=== PATIENT | female | born 1975 | race Caucasian/White ===

== ENCOUNTER 2017-03-06 15:24 | Emergency (ER) | payer SELFPAY ==
[~2017-03-06] VITALS: Ht 165.1 cm; Wt 72.6 kg
[2017-03-06] MEDS ORDERED: ORPHENADRINE 60 MG/2 ML (NORFLEX) AMP IV STA (15:40)
[2017-03-06] MEDS ORDERED: fentaNYL INJECTION 100 MCG/2 ML AMP IVP STA (15:40)
--- NOTE | 2017-03-06 15:47 | ED Fall/Injury ---
General Chief Complaint: Trauma-Non Activation Stated Complaint: FALL Nursing Triage Note: ARRIVED VIA EMS FROM HOME. PT FELL OFF [facility] STA[facility] SAT MORNING. COMPLAINS OF PAIN RIGHT COLLAR BONE, RIGHT ARM, RIGHT RIBS, AND TAIL BONE. PT DENIES LOC AFTER FALL. PT TOOK IBUPROFEN 800MG THIS AM BEFORE WORK. Source: patient Exam Limitations: no limitations History of Present Illness Time seen by provider: 15:38 Initial Comments 41-year-old female patient presents to the emergency department via EMS with complaints of slipping and falling down the porch stairs Monday. Reports worse pain today. Denies loss of consciousness, confusion, neck pain. Does complain of right forearm pain, right rib pain, right hip pain, buttock pain, and low back pain. Location Injury Occurred: home Occurred: other (monday) Injuries/Pain Location: upper extremity, chest, back, pelvis, lower extremity Context: slipped Loss of Consciousness: no loss of consciousness Modifying Factors: Improves With Immobilization, Worse With Movement Allergies and Home Medications Allergies Coded Allergies: Penicillins (Verified Adverse Reaction, Unknown, 03/06/17) DAD IS ALLERGIC AND SHE DOES NOT WANT IT. Home Medications Cyclobenzaprine HCl 10 Mg Tablet, 10 MG PO Q8H PRN for SPASMS, #14 Ref 0 Prescribed by: LAN FLORES on 03/06/171748 Prednisone 20 Mg Tab, 40 MG PO DAILY, #10 Ref 0 Prescribed by: LAN FLORES on 03/06/171748 Tramadol HCl 50 Mg Tablet, 50 MG PO Q4H PRN for pain, #14 Ref 0 Prescribed by: LAN FLORES on 03/06/171748 Constitutional: no symptoms reported Eyes: No Symptoms Reported Ears, Nose, Mouth, Throat: no symptoms reported Respiratory: No cough, No short of breath Cardiovascular: No chest pain, No syncope Gastrointestinal: no symptoms reported Genitourinary: no symptoms reported Musculoskeletal: see HPI, back pain, joint pain, No neck pain Skin: no symptoms reported Psychiatric/Neurological: Denies Headache, Denies Numbness, Denies Paresthesia , Denies Tingling, Denies Weakness All Other Systems Reviewed Negative Unless Noted: Yes (Negative excepted noted.) Past Exlbwck-Iekbde-Odwalj Hx Patient Social History Alcohol Use: Occasionally Uses Recreational Drug Use: No Smoking Status: Current Everyday Smoker Recent Foreign Travel: No Contact w/Someone Who Travel: No Recent Infectious Disease Expo: No Recent Hopitalizations: No Surgeries HX Surgeries: Yes Surgeries: Tubal Ligation Respiratory Hx Respiratory Disorders: Yes Respiratory Disorders: Asthma Cardiovascular Hx Cardiac Disorders: No Neurological Hx Neurological Disorders: No Genitourinary Hx Genitourinary Disorders: No Gastrointestinal Hx Gastrointestinal Disorders: No Musculoskeletal Hx Musculoskeletal Disorders: No Reviewed Nursing Assessment Reviewed/Agree w Nursing PMH: Yes Family Medical History Significant Family History: No Pertinent Family Hx Physical Exam Vital Signs Vital Sign - Last 12Hours 03/06/17 15:25 Temp 98.0 Pulse 66 Resp 16 B/P (MAP) 136/66 Pulse Ox 96 O2 Delivery Room Air Capillary Refill : Less Than 3 Seconds General Appearance: WD/WN, no apparent distress HEENT: PERRL/EOMI, normal ENT inspection, TMs normal, pharynx normal Neck: non-tender, full range of motion, supple, normal inspection Cardiovascular: normal peripheral pulses, regular rate, rhythm, no murmur Respiratory: lungs clear, normal breath sounds, no respiratory distress, other (rt lateral ribs TTP w/o ecchymosis, swelling or deformity.) Peripheral Pulses: 2+ Dorsalis Pedis (R), 2+ Left Dors-Pedis (L), 2+ Radial Pulses (R), 2+ Radial Pulses (L) Gastrointestinal: normal bowel sounds, non tender, soft, no organomegaly, No distended Back: normal inspection, no CVA tenderness, decreased range of motion, muscle spasm, vertebral tenderness (lumbar) Extremities: normal range of motion, normal inspection, no pedal edema, normal capillary refill, pelvis stable, other (rt distal forearm ttp w/ faint ecchymosis with bony/soft tissue tenderness. rt lateral, posterior hip ttp w/o evidence of trauma. ) Neurologic/Psychiatric: product director II-XII nml as tested, no motor/sensory deficits, alert, normal mood/affect, oriented x 3 Skin: normal color, warm/dry, No ecchymosis Hammond Coma Score Best Eye Response: (4) Open Spontaneously Best Verbal Response: (5) Oriented Best Motor Response: (6) Obeys Commands Hammond Total: 15 Progress/Results/Core Measures Results/Orders My Orders Orders - LAN FLORES Ct Chest W (03/06/17 15:40) Ct Lumbar Spine Wo (03/06/17 15:40) Saline Lock/Iv-Start (03/06/17 15:40) Fentanyl Injection (Sublimaze Injection (03/06/17 15:40) Orphenadrine Injection (Norflex Injectio (03/06/17 15:40) Forearm, Right, 2 Views (03/06/17 15:40) Pelvis (03/06/17 15:40) Hip, Right, 2 Views (03/06/17 15:40) Iohexol Injection (Omnipaque 350 Mg/Ml 1 (03/06/17 16:00) Sodium Chloride Flush (Catheter Flush Sy (03/06/17 16:00) Ns (Ivpb) (Sodium Chloride 0.9% Ivpb Bag (03/06/17 16:00) Ketorolac Injection (Toradol Injection) (03/06/17 17:44) Hydrocodone/Apap 10/325 Tablet (Lortab 1 (03/06/17 17:44) Medications Given in ED Current Medications Medications Dose Ordered Sig/Joselin Route Start Time Stop Time Status Last Admin Dose Admin Iohexol 75 ml ONCE ONCE IV 03/06/17 16:00 03/06/17 16:21 DC 03/06/17 16:36 75 ML Sodium Chloride 10 ml NEEDED PRN IV 03/06/17 16:00 03/06/17 18:17 DC 03/06/17 16:36 10 ML Sodium Chloride 100 ml ONCE ONCE IV 03/06/17 16:00 03/06/17 16:21 DC 03/06/17 16:36 80 ML Vital Signs/I&O Vital Sign - Last 12Hours 03/06/17 03/06/17 15:25 18:16 Temp 98.0 Pulse 66 61 Resp 16 18 B/P (MAP) 136/66 Pulse Ox 96 98 O2 Delivery Room Air Blood Pressure Mean: 89 Diagnostic Imaging Diagonstic Imaging: CT Plain Films/CT/US/NM/MRI: other (lumbar spine) Comments FINDINGS: The alignment of the lumbar spine is satisfactory. There is no pars defect or fracture. The vertebral body heights are preserved. Disc heights are also preserved. There are minimal anterior osteophytes at multiple levels. No significant posterior osteophyte is seen. No fracture seen. The paraspinal soft tissues appear unremarkable. IMPRESSION: No fracture seen. Dictated by: Dictated on workstation # [id number] Reviewed: Reviewed by Me (radiology report reviewed by me) Diagonstic Imaging: CT Plain Films/CT/US/NM/MRI: chest Comments FINDINGS: The lungs demonstrate minimal dependent atelectasis bilaterally with no significant consolidation or contusion. No suspicious nodule or lung mass is seen. The heart size is normal. No pericardial or pleural effusion. No mediastinal hematoma. Thymic remnant is seen in the anterior mediastinum. No lymphadenopathy in the mediastinum, esteban or in the axilla. The thoracic aorta caliber and contour and enhancement is normal. No axillary lymphadenopathy. Sections in the upper abdomen demonstrate cholecystectomy clips. The osseous structures appear grossly unremarkable. IMPRESSION: Minimal dependent atelectasis is seen in the lungs. No significant abnormality otherwise. Dictated by: Dictated on workstation # [id number] Reviewed: Reviewed by Me (radiology report reviewed by me) Diagonstic Imaging: Xray Plain Films/CT/US/NM/MRI: forearm Comments FINDINGS: No fracture, dislocation, or radiopaque foreign body. The proximal and distal joints appear grossly unremarkable. IMPRESSION: No fracture is seen. Dictated by: Dictated on workstation # [id number] Reviewed: Reviewed by Me (radiology report reviewed by me) Diagonstic Imaging: Xray Plain Films/CT/US/NM/MRI: hip Comments FINDINGS: No fracture, dislocation, or radiopaque foreign body. The joint lining is normal. Faint calcification in the right side of the pelvis is likely a phlebolith. The right SI joint appears unremarkable. IMPRESSION: Unremarkable exam. Dictated by: Dictated on workstation # [id number] Reviewed: Reviewed by Me (radiology report reviewed by me) Diagonstic Imaging: Xray Plain Films/CT/US/NM/MRI: pelvis Comments FINDINGS: No fracture or dislocation is seen. The hip and SI joints appear unremarkable. No radiopaque foreign body. IMPRESSION: Unremarkable exam. Dictated by: Dictated on workstation # [id number] Reviewed: Reviewed by Me (radiology report reviewed by me) Departure Communication Progress Notes diagnostic findings discussed with the patient. plan for dsch to home. patient ambulated from the ED without difficulty. Impression Impression: Primary Impression: Low back strain Qualified Codes: S39.012A - Strain of muscle, fascia and tendon of lower back , initial encounter Additional Impression: Contusion, multiple sites Disposition: HOME, SELF-CARE Condition: Improved Departure-Patient Inst. Decision time for Depature: 17:47 Add. Discharge Instructions: All discharge instructions reviewed with patient and/or family. Voiced understanding. Medications as instructed. Tylenol Extra Strength over-the- counter as directed for pain. Ibuprofen 800 mg by mouth every 8 hours as needed for pain. Ice pack or a heating pad for 20 minute intervals as needed for pain. No lifting, pushing, pulling, twisting, bending, climbing 7 days. Follow-up with your family practitioner of choice for recheck if no improvement in symptoms in 7-10 days. Return to the emergency department for worsened pain , bowel incontinence, bladder incontinence, numbness, weakness, or any other concerns. Scripts Prednisone (Prednisone) 20 Mg Tab 40 MG PO DAILY, #10 TAB 0 Refills Prov: LAN FLORES 03/06/17 Cyclobenzaprine HCl (Cyclobenzaprine HCl) 10 Mg Tablet 10 MG PO Q8H Y for SPASMS, #14 TAB 0 Refills Prov: LAN FLORES 03/06/17 Tramadol HCl (Tramadol HCl) 50 Mg Tablet 50 MG PO Q4H Y for pain, #14 TAB 0 Refills Prov: LAN FLORES 03/06/17 Work/School Note: Local Medical Staff Listing, Work Release Form Date Seen in the Emergency Department: Mar 06, 2017 Return to Work: Mar 08, 2017 Other Restrictions Listed Below: No lifting, pushing, pulling, twisting, bending, climbing 7 days. LAN FLORES Mar 06, 2017 15:47
[2017-03-06] MEDS ORDERED: CATHETER FLUSH 10 ML SYR IV PRN (16:00)
[2017-03-06] MEDS ORDERED: IOHEXOL 350 MG/ML 100 ML (OMNIPAQUE 350) VIAL IV ONE (16:00)
[2017-03-06] MEDS ORDERED: NS 100 ML (IVPB) BAG IV ONE (16:00)
--- NOTE | 2017-03-06 16:49 | Diagnostic Imaging Report ---
EXAMINATION: Two views of the right hip. INDICATION: Injury. FINDINGS: No fracture, dislocation, or radiopaque foreign body. The joint lining is normal. Faint calcification in the right side of the pelvis is likely a phlebolith. The right SI joint appears unremarkable. IMPRESSION: Unremarkable exam. Dictated by: Dictated on workstation # [id number]
--- NOTE | 2017-03-06 16:49 | Diagnostic Imaging Report ---
AP view of the pelvis. INDICATION: Injury. FINDINGS: No fracture or dislocation is seen. The hip and SI joints appear unremarkable. No radiopaque foreign body. IMPRESSION: Unremarkable exam. Dictated by: Dictated on workstation # [id number]
--- NOTE | 2017-03-06 16:49 | Diagnostic Imaging Report ---
EXAMINATION: Two views of the right forearm. INDICATION: Fall. FINDINGS: No fracture, dislocation, or radiopaque foreign body. The proximal and distal joints appear grossly unremarkable. IMPRESSION: No fracture is seen. Dictated by: Dictated on workstation # [id number]
--- NOTE | 2017-03-06 16:57 | Diagnostic Imaging Report ---
PROCEDURE: CT chest with contrast only. TECHNIQUE: Multiple contiguous axial images were obtained through the chest after administration of intravenous contrast. INDICATION: Fall. Right-sided rib and chest pain. FINDINGS: The lungs demonstrate minimal dependent atelectasis bilaterally with no significant consolidation or contusion. No suspicious nodule or lung mass is seen. The heart size is normal. No pericardial or pleural effusion. No mediastinal hematoma. Thymic remnant is seen in the anterior mediastinum. No lymphadenopathy in the mediastinum, esteban or in the axilla. The thoracic aorta caliber and contour and enhancement is normal. No axillary lymphadenopathy. Sections in the upper abdomen demonstrate cholecystectomy clips. The osseous structures appear grossly unremarkable. IMPRESSION: Minimal dependent atelectasis is seen in the lungs. No significant abnormality otherwise. Dictated by: Dictated on workstation # [id number]
--- NOTE | 2017-03-06 17:01 | Diagnostic Imaging Report ---
PROCEDURE: CT lumbar spine without contrast. TECHNIQUE: Multiple contiguous axial images were obtained through the lumbar spine without the use of intravenous contrast. Sagittal and coronal reformations were then performed. INDICATION: Fall. Back pain. FINDINGS: The alignment of the lumbar spine is satisfactory. There is no pars defect or fracture. The vertebral body heights are preserved. Disc heights are also preserved. There are minimal anterior osteophytes at multiple levels. No significant posterior osteophyte is seen. No fracture seen. The paraspinal soft tissues appear unremarkable. IMPRESSION: No fracture seen. Dictated by: Dictated on workstation # [id number]
[2017-03-06] MEDS ORDERED: KETOROLAC 30 MG/ML VIAL IVP STA (17:44)
[2017-03-06] MEDS ORDERED: HYDROcodone/APAP 10 MG/325 MG (LORTAB) TAB PO STA (17:44)
[2017-03-06] MEDS ORDERED: TRAM50TA2 PO (17:49)
[2017-03-06] MEDS ORDERED: CYCL10TA9 PO (17:49)
[2017-03-06] MEDS ORDERED: PRD20T PO (17:49)
[2017-03-06 18:16] VITALS: BP 117/60
== END 2017-03-06 18:16 | disposition home or self-care (01) ==
LOC: ER 15:26
DX: S39.012A Strain of muscle, fascia and tendon of lower back, initial encounter (principal); J45.909 Unspecified asthma, uncomplicated; F17.200 Nicotine dependence, unspecified, uncomplicated; W10.9XXA Fall (on) (from) unspecified stairs and steps, initial encounter; Y92.008 Other place in unspecified non-institutional (private) residence as the place of occurrence of the external cause
CPT/HCPCS: 71260; 72131; 72170; 73090; 73502

== ENCOUNTER 2019-12-18 22:51 | Emergency (ER) | payer SELFPAY ==
[~2019-12-18] VITALS: Ht 167.6 cm; Wt 84.3 kg
[~2019-12-18 22:51] MED LIST: CYCL10TA9 PO; PRD20T PO; TRM50T PO
--- NOTE | 2019-12-18 23:13 | ED Respiratory ---
General Chief Complaint: Respiratory Problems Stated Complaint: SOB Nursing Triage Note: patient states shortness of breath x1 week. states cough non productive. patient states highest temp 99 Source: patient Exam Limitations: no limitations History of Present Illness Date Seen by Provider: Dec 18, 2019 Time Seen by Provider: 22:47 Initial Comments Patient presents to the ER by private conveyance with significant other and chief complaint of one week of cough and shortness of breath or fever. She was diagnosed approximately one week ago at the [facility] with a pneumonia. She did not receive a chest x-ray. She was put on a single dose of antibiotics which she has a left take. She does not have the name of it. He was also given a course of steroids which she completed. She felt like her coughing and getting worse today so she went back to the clinic and they said her wheezing sounded much better that they gave her a shot of antibiotics in her bottom and told her if her breathing got worse to come to the ER tonight. Feels like her breathing was worse today although the reasons much better. She's had a nonproductive cough entire time. Tmax today of 99.6. She has had negative strep and flu swab twice as well as she received swab COVID-19 today at the clinic. She denies a history of asthma, COPD but she does endorse smoking a pack of cigarettes. Significant medical history. She's had her gallbladder is recommended. Patient states that she had gestational diabetes and for about a year or 2 afterwards was on insulin but with diet control she has not been diabetic since then. She does not follow routinely with a primary care doctor now. Allergies and Home Medications Allergies Coded Allergies: Penicillins (Verified Adverse Reaction, Unknown, 03/06/17) DAD IS ALLERGIC AND SHE DOES NOT WANT IT. Home Medications Benzonatate 100 Mg Capsule, 100 MG PO Q6H PRN for COUGH Prescribed by: REINALDO ESPINOSA on 12/18/19 [id number] Cyclobenzaprine HCl 10 Mg Tablet, 10 MG PO Q8H PRN for SPASMS Prescribed by: LAN FLORES on 03/06/17 174 Prednisone 20 Mg Tab, 40 MG PO DAILY Prescribed by: LAN FLORES on 03/06/17 174 Tramadol HCl 50 Mg Tablet, 50 MG PO Q4H PRN for pain Prescribed by: LAN FLORES on 03/06/171748 Patient Home Medication List Home Medication List Reviewed: Yes Review of Systems Review of Systems Constitutional: No chills, No fever; malaise EENTM: No ear discharge, No ear pain Respiratory: cough; No phlegm; short of breath Cardiovascular: No chest pain, No edema, No Hx of Intervention, No palpitations Gastrointestinal: No abdominal pain, No nausea, No vomiting Genitourinary: No discharge, No dysuria Musculoskeletal: No back pain, No joint pain All Other Systems Reviewed Negative Unless Noted: Yes Past Sfdhdze-Ulfwcw-Tblttz Hx Patient Social History Alcohol Use: Denies Use Recreational Drug Use: No Smoking Status: Current Everyday Smoker (1 PPD) Recent Foreign Travel: No Contact w/Someone Who Travel: No Recent Infectious Disease Expo: No Recent Hopitalizations: No Physical Abuse: No Sexual Abuse: No Mistreated: No Past Medical History Surgeries: Yes Tubal Ligation Respiratory: Yes Asthma Cardiac: No Neurological: No Genitourinary: No Gastrointestinal: No Musculoskeletal: No Endocrine: No HEENT: No Cancer: No Psychosocial: No Integumentary: No Family Medical History No Pertinent Family Hx Physical Exam Vital Signs - First Documented 12/18/19 22:59 Temp 37.2 Pulse 80 Resp 18 B/P (MAP) 145/86 (105) Pulse Ox 97 O2 Delivery Room Air Capillary Refill : Less Than 3 Seconds Height: 5'5.00" Weight: 160lbs. oz. [id number]; 30.00 BMI Method:Estimated General Appearance: WD/WN, no apparent distress Eyes: Bilateral Eye Normal Inspection, Bilateral Eye PERRL, Bilateral Eye EOMI HEENT: PERRL/EOMI, pharynx normal Neck: non-tender, full range of motion, normal inspection Respiratory: chest non-tender, lungs clear, normal breath sounds, no respiratory distress, no accessory muscle use Cardiovascular: normal peripheral pulses, regular rate, rhythm Gastrointestinal: normal bowel sounds, non tender, soft Neurologic/Psychiatric: alert, oriented x 3 Skin: normal color, warm/dry Progress/Results/Core Measures Suspected Sepsis Recent Fever Within 48 Hours: No Infection Criteria Present: None New/Unexplained Altered Menta: No Sepsis Screen: No Definite Risk SIRS Temperature: Pulse: 80 Respiratory Rate: 18 Laboratory Tests 12/18/19 23:15: White Blood Count 14.3H Blood Pressure 145 /86 Mean: 105 Laboratory Tests 12/18/19 23:15: Creatinine 1.20, Platelet Count 342, Total Bilirubin 0.1 Results/Orders Lab Results Laboratory Tests Test 12/18/19 23:08 12/18/19 23:15 Range/Units Blood Gas Puncture Site R RAD Blood Gas Patient Temperature 37.1 Arterial Blood pH 7.49 H 7.37-7.43 Arterial Blood Partial Pressure CO2 29 L 35-45 MMHG Arterial Blood Partial Pressure O2 92 79-93 MMHG Arterial Blood HCO3 22 L 23-27 MMOL/L Arterial Blood Total CO2 22.8 21.0-31.0 MMOL/L Arterial Blood Oxygen Saturation 98 94-100 % Arterial Blood Base Excess -1.1 -2.5-2.5 MMOL/L Morgan Test YES-POS Blood Gas Ventilator Setting NO Blood Gas Inspired Oxygen RA White Blood Count 14.3 H 4.3-11.0 10^3/uL Red Blood Count 5.66 4.35-5.85 10^6/uL Hemoglobin 15.8 11.5-16.0 G/DL Hematocrit 46 35-52 % Mean Corpuscular Volume 81 80-99 FL Mean Corpuscular Hemoglobin 28 25-34 PG Mean Corpuscular Hemoglobin Concent 35 32-36 G/DL Red Cell Distribution Width 14.7 H 10.0-14.5 % Platelet Count 342 130-400 10^3/uL Mean Platelet Volume 10.1 7.4-10.4 FL Neutrophils (%) (Auto) 88 H 42-75 % Lymphocytes (%) (Auto) 10 L 12-44 % Monocytes (%) (Auto) 2 0-12 % Eosinophils (%) (Auto) 0 0-10 % Basophils (%) (Auto) 0 0-10 % Neutrophils # (Auto) 12.6 H 1.8-7.8 X 10^3 Lymphocytes # (Auto) 1.5 1.0-4.0 X 10^3 Monocytes # (Auto) 0.2 0.0-1.0 X 10^3 Eosinophils # (Auto) 0.0 0.0-0.3 10^3/uL Basophils # (Auto) 0.0 0.0-0.1 10^3/uL Neutrophils % (Manual) 90 % Lymphocytes % (Manual) 8 % Monocytes % (Manual) 1 % Metamyelocytes % 1 % Blood Morphology Comment NORMAL Sodium Level 134 L 135-145 MMOL/L Potassium Level 4.3 3.6-5.0 MMOL/L Chloride Level 101 98-107 MMOL/L Carbon Dioxide Level 16 L 21-32 MMOL/L Anion Gap 17 H 5-14 MMOL/L Blood Urea Nitrogen 19 H 7-18 MG/DL Creatinine 1.20 0.60-1.30 MG/DL Estimat Glomerular Filtration Rate 49 BUN/Creatinine Ratio 16 Glucose Level 438 *H 70-105 MG/DL Calcium Level 9.5 8.5-10.1 MG/DL Corrected Calcium 8.5-10.1 MG/DL Total Bilirubin 0.1 0.1-1.0 MG/DL Aspartate Amino Transf (AST/SGOT) 14 5-34 U/L Alanine Aminotransferase (ALT/SGPT) 22 0-55 U/L Alkaline Phosphatase 57 40-136 U/L C-Reactive Protein High Sensitivity 0.12 0.00-0.50 MG/DL Total Protein 7.9 6.4-8.2 GM/DL Albumin 4.6 H 3.2-4.5 GM/DL My Orders Orders - REINALDO ESPINOSA Cbc With Automated Diff (12/18/19 23:05) Comprehensive Metabolic Panel (12/18/19 23:05) Hs C Reactive Protein (12/18/19 23:05) Arterial Blood Gas (12/18/19 23:05) Chest 1 View, Ap/Pa Only (12/18/19 23:05) Albuterol Pre-Mix Nebs (Rt) (Proventil (12/18/19 23:16) Albuterol Pre-Mix Nebs (Rt) (Proventil (12/18/19 23:30) Svn Small Volume Nebulizer (12/18/19 23:20) Manual Differential (12/18/19 23:15) Rx-Albuterol Inhaler (Rx-Proair) (12/18/19 23:31) Insulin Determir (Per Unit) (Levemir (Pe (12/19/19 00:00) Medications Given in ED Current Medications Medications Dose Ordered Sig/Joselin Route Start Time Stop Time Status Last Admin Dose Admin Albuterol Sulfate 2.5 mg ONCE ONCE INH 12/18/19 23:30 12/18/19 23:32 DC 12/18/19 23:27 2.5 MG Insulin Detemir 10 unit ONCE ONCE SQ 12/19/19 00:00 12/19/19 00:01 DC 12/19/19 00:03 10 UNIT Vital Signs/I&O 12/18/19 12/19/19 22:59 00:17 Temp 37.2 36.7 Pulse 80 97 Resp 18 18 B/P (MAP) 145/86 (105) 141/88 Pulse Ox 97 93 O2 Delivery Room Air Room Air Capillary Refill : Less Than 3 Seconds Blood Pressure Mean: 105 Progress Note #1: Time: 23:14 Progress Note The patient has normal vital signs and no objective findings shortness of air. Based on her subjective shortness of air, smoking history and being treated outpatient for pneumonia we will get a chest x-ray to document whether she has significant pneumonia that might benefit from inpatient treatment. At this point she does not meet any inpatient criteria. She may benefit from from her inhaler and spacer however. He can also provide her some Tessalon Perles. Progress Note #2: Time: 23:51 Progress Note Patient's blood sugar is elevated however she's been on steroids. She denies a h istory of diabetes. We'll give her a single dose of long-acting insulin. We will instruct her to follow-up either later this week or early next week with her primary care doctor to discuss how to deal with her elevated blood sugar. Patient's oxygen did go down to about 90% on room air when she would fall asleep. Suspect she may have a little obstructive sleep apnea and addition to a background of diabetes. We have discussed these inserted with her and encouraged her strongly to follow-up with a primary care doctor which she says she will do. Diagnostic Imaging Diagonstic Imaging: Xray Plain Films/CT/US/NM/MRI: chest Comments No acute cardiopulmonary process on one view portable chest x-ray. Reviewed: Reviewed by Me Departure Impression Primary Impression: Bronchitis Additional Impression: Hyperglycemia Disposition: 01 HOME, SELF-CARE Condition: Stable Departure-Patient Inst. Decision time for Depature: 23:52 Referrals: [facility] [place] Primary Care Physician Patient Instructions: Acute Bronchitis, Adult (DC), Hyperglycemia, Adult (DC) Add. Discharge Instructions: Please finish the antibiotics as instructed. Use the albuterol inhaler 2 puffs every 4 hours as needed for coughing, wheezing or shortness of breath. Tessalon Perles 1 capsule every 6 hours as needed for coughing. Drink plenty of fluids. For sleep you may use Tylenol PM, doxylamine, Benadryl/diphenhydramine, melatonin. Plan to follow up next week with your primary care doctor to discuss your elevated blood sugar. Return to the ER if you're still having shortness of breath despite these medications. All discharge instructions reviewed with patient and/or family. Voiced understanding. Scripts Benzonatate (Tessalon Perle) 100 Mg Capsule 100 MG PO Q6H PRN for COUGH, #30 CAP 0 Refills Prov: REINALDO ESPINOSA 12/18/19 Work/School Note: Work Release Form Date Seen in the Emergency Department: A pr 2019 Return to Work: Dec 23, 2019 Restrictions: Return-No Fever (24hrs) REINALDO ESPINOSA Dec 18, 2019 23:13
[2019-12-18] MEDS ORDERED: RT-ALBUTEROL SULF 2.5 MG/3 ML PRE-MIX VIAL ONE (23:16)
[2019-12-18 23:25] LABS: ABG BASE EXCESS -1.1 MMOL/L (-2.5-2.5); ABG OXYGEN SATURATION 98 % (94-100); ABG PCO2 29 MMHG (35-45); ABG PH 7.49 (7.37-7.43); ABG PO2 92 MMHG (79-93); ABG TCO2 22.8 MMOL/L (21.0-31.0); ALLENS TEST YES-POS; INSPIRED O2 RA; PATIENT TEMP 37.1; VENTILATOR NO
[2019-12-18 23:28] LABS: BASOPHILS % (AUTO) 0 % (0-10); EOSINOPHILS % (AUTO) 0 % (0-10); HEMATOCRIT 46 % (35-52); HEMOGLOBIN 15.8 G/DL (11.5-16.0); LYMPHOCYTES # (AUTO) 1.5 X 10^3 (1.0-4.0); LYMPHOCYTES % (AUTO) 10 % (12-44); MEAN CORPUSCULAR HEMOGLOBIN 28 PG (25-34); MEAN CORPUSCULAR HGB CONC 35 G/DL (32-36); MEAN CORPUSCULAR VOLUME 81 FL (80-99); MEAN PLATELET VOLUME 10.1 FL (7.4-10.4); MONOCYTES # (AUTO) 0.2 X 10^3 (0.0-1.0); MONOCYTES % (AUTO) 2 % (0-12); NEUTROPHILS # (AUTO) 12.6 X 10^3 (1.8-7.8); NEUTROPHILS % (AUTO) 88 % (42-75); PLATELET COUNT 342 10^3/uL (130-400); RED CELL DISTRIBUTION WIDTH 14.7 % (10.0-14.5); WHITE BLOOD COUNT 14.3 10^3/uL (4.3-11.0)
[2019-12-18] MEDS ORDERED: RT-ALBUTEROL SULF 2.5 MG/3 ML PRE-MIX VIAL INH ONE (23:30)
[2019-12-18] MEDS ORDERED: RX-ALBUTEROL INHALER (PROAIR) 8.5 GM IH STA (23:31)
[2019-12-18 23:44] LABS: ALANINE AMINOTRANSFERASE 22 U/L (0-55); ALBUMIN 4.6 GM/DL (3.2-4.5); ALKALINE PHOSPHATASE 57 U/L (40-136); BILIRUBIN,TOTAL 0.1 MG/DL (0.1-1.0); BUN/CREATININE RATIO 16; CALCIUM 9.5 MG/DL (8.5-10.1); CARBON DIOXIDE 16 MMOL/L (21-32); CHLORIDE 101 MMOL/L (98-107); GFR ESTIMATED 49; POTASSIUM 4.3 MMOL/L (3.6-5.0); SODIUM 134 MMOL/L (135-145); TOTAL PROTEIN 7.9 GM/DL (6.4-8.2)
[2019-12-18 23:47] LABS: GLUCOSE 438 MG/DL (70-105)
[2019-12-18 23:52] LABS: LYMPHOCYTES % (MANUAL) 8 %; NEUTROPHILS % (MANUAL) 90 %
[2019-12-18 23:53] LABS: METAMYELOCYTES % 1 %; MONOCYTES % (MANUAL) 1 %; RBC MORPH NORMAL
[2019-12-18] MEDS ORDERED: BENZ-13 PO (23:54)
--- NOTE | 2019-12-18 23:59 | NUR ---
patient sitting up in bed, oxygen saturation 90 percent. patient stated her oxygen dropped down at the clinic also. Dr Hayes notified.
[2019-12-19 00:17] VITALS: BP 141/88
--- NOTE | 2019-12-19 06:56 | Diagnostic Imaging Report ---
CHEST 1 VIEW, AP/PA ONLY Indication: Shortness of air Comparison: None available. Findings: No focal airspace disease in the visualized lungs. Please note that the posterior lower lobes are poorly evaluated by portable radiography. No pleural effusion or pneumothorax. Normal cardiomediastinal silhouette. Impression: 1. No acute cardiopulmonary process by portable radiography. Dictated by: Dictated on workstation # [id number]
== END 2019-12-19 00:19 | disposition home or self-care (01) ==
LOC: EDUNIT# 22:51 → ER 22:53
DX: J40 Bronchitis, not specified as acute or chronic (principal); R73.9 Hyperglycemia, unspecified; F17.210 Nicotine dependence, cigarettes, uncomplicated
CPT/HCPCS: 36415; 71045; 80053; 82805; 85007; 85027; 86141; 94640

== ENCOUNTER 2020-02-26 09:43 | Emergency (ER) | payer SELFPAY ==
[~2020-02-26] VITALS: Ht 162.5 cm; Wt 83.0 kg
[~2020-02-26 09:43] MED LIST changes: +BENZ-13 PO
[2020-02-26 10:53] LABS: BASOPHILS % (AUTO) 0 % (0-10); EOSINOPHILS # (AUTO) 0.1 10^3/uL (0.0-0.3); EOSINOPHILS % (AUTO) 0 % (0-10); HEMATOCRIT 46 % (35-52); HEMOGLOBIN 15.4 G/DL (11.5-16.0); LYMPHOCYTES # (AUTO) 2.4 X 10^3 (1.0-4.0); LYMPHOCYTES % (AUTO) 15 % (12-44); MEAN CORPUSCULAR HEMOGLOBIN 27 PG (25-34); MEAN CORPUSCULAR HGB CONC 34 G/DL (32-36); MEAN CORPUSCULAR VOLUME 82 FL (80-99); MEAN PLATELET VOLUME 10.2 FL (7.4-10.4); MONOCYTES # (AUTO) 1.1 X 10^3 (0.0-1.0); MONOCYTES % (AUTO) 7 % (0-12); NEUTROPHILS # (AUTO) 12.4 X 10^3 (1.8-7.8); NEUTROPHILS % (AUTO) 78 % (42-75); PLATELET COUNT 321 10^3/uL (130-400); RED CELL DISTRIBUTION WIDTH 14.9 % (10.0-14.5); WHITE BLOOD COUNT 15.9 10^3/uL (4.3-11.0)
[2020-02-26 10:54] LABS: ALBUMIN 4.6 GM/DL (3.2-4.5); CHLORIDE 106 MMOL/L (98-107)
[2020-02-26 10:55] LABS: BILIRUBIN,URINE NEGATIVE (NEGATIVE); CLARITY,URINE CLEAR; COLOR,URINE YELLOW; GLUCOSE, URINE (UA) 1+ (NEGATIVE); KETONES,URINE NEGATIVE (NEGATIVE); LEUKOCYTE ESTERASE ,URINE NEGATIVE (NEGATIVE); NITRITE,URINE NEGATIVE (NEGATIVE); PH,URINE 5.5 (5-9); PROTEIN,URINE NEGATIVE (NEGATIVE)
[2020-02-26 10:55] LABS: POTASSIUM 4.1 MMOL/L (3.6-5.0); SODIUM 138 MMOL/L (135-145)
--- NOTE | 2020-02-26 10:55 | ED Abdominal Pain ---
General Chief Complaint: Abdominal/GI Problems Stated Complaint: ABD PAIN Nursing Triage Note: AMB TO ROOM C/O R LOWER ABD PAIN THAT RADIATES ACROSS. NO UTI SYMPTOMS HAD NOT HAD BM FOR SEVERAL DAYS Sepsis Screen: No Definite Risk Source of Information: Patient Exam Limitations: No Limitations History of Present Illness Date Seen by Provider: Feb 26, 2020 Time Seen by Provider: 10:54 Initial Comments To ER with right lower quadrant abdominal pain for 5 days. No bowel movement for a couple of days. No fevers or chills but she has had nausea. Timing/Duration: 4-5 Days Severity/Quality: Moderate Location: RLQ Radiation: No Radiation Activities at Onset: None Allergies and Home Medications Allergies Coded Allergies: Penicillins (Verified Adverse Reaction, Unknown, 03/06/17) DAD IS ALLERGIC AND SHE DOES NOT WANT IT. Home Medications Benzonatate 100 Mg Capsule, 100 MG PO Q6H PRN for COUGH Prescribed by: REINALDO ESPINOSA on 12/18/19 2354 Cyclobenzaprine HCl 10 Mg Tablet, 10 MG PO Q8H PRN for SPASMS Prescribed by: LAN FLORES on 03/06/17 1749 Doxycycline Hyclate 100 Mg Tablet, 100 MG PO BID Prescribed by: KIMMY CANO on 02/26/20 1229 Hydrocodone/Acetaminophen 1 Each Tablet, 1 EACH PO Q4-6HR PRN for PAIN-MODERATE Prescribed by: KIMMY CANO on 02/26/20 1230 Prednisone 20 Mg Tab, 40 MG PO DAILY Prescribed by: LAN FLORES on 03/06/17 1749 Tramadol HCl 50 Mg Tablet, 50 MG PO Q4H PRN for pain Prescribed by: LAN FLORES on 03/06/17 1749 Patient Home Medication List Home Medication List Reviewed: Yes Review of Systems Review of Systems Constitutional: see HPI EENTM: No Symptoms Reported Respiratory: No Symptoms Reported Cardiovascular: See HPI Gastrointestinal: See HPI, Abdominal Pain Genitourinary: No Symptoms Reported Musculoskeletal: no symptoms reported Skin: no symptoms reported Psychiatric/Neurological: No Symptoms Reported Endocrine: No Symptoms Reported Hematologic/Lymphatic: No Symptoms Reported Past Tijyjdz-Fjekdx-Dgommc Hx Patient Social History Alcohol Use: Occasionally Uses Recreational Drug Use: No Smoking Status: Current Everyday Smoker Type Used: Cigarettes Recent Foreign Travel: No Contact w/Someone Who Travel: No Recent Infectious Disease Expo: No Recent Hopitalizations: No Past Medical History Surgeries: Yes Tubal Ligation Respiratory: Yes Asthma Cardiac: No Neurological: No Genitourinary: No Gastrointestinal: No Musculoskeletal: No Endocrine: No HEENT: No Cancer: No Psychosocial: No Integumentary: No Family Medical History No Pertinent Family Hx Physical Exam Vital Signs Vital Signs - First Documented 02/26/20 09:59 Temp 36.9 Pulse 82 Resp 18 B/P (MAP) 152/102 (119) Pulse Ox 97 O2 Delivery Room Air Capillary Refill : Less Than 3 Seconds Height/Weight/BMI Height: 5'5.00" Weight: 160lbs. oz. 72.991084sy; 31.00 BMI Method:Estimated General Appearance: WD/WN, no apparent distress HEENT: PERRL/EOMI, normal ENT inspection Respiratory: no respiratory distress, no accessory muscle use Gastrointestinal: normal bowel sounds, soft, tenderness Genital/Rectal: other (she did just start her period so there is some blood in the vaginal vault,reji rn at the bedside during vaginal exam. Mild cervical motion tenderness) Extremities: normal range of motion, non-tender Neurologic/Psychiatric: alert, normal mood/affect, oriented x 3 Skin: normal color, warm/dry Progress/Results/Core Measures Results/Orders Lab Results Laboratory Tests Test 02/26/20 10:14 02/26/20 10:49 02/26/20 13:12 Range/Units White Blood Count 15.9 H 4.3-11.0 10^3/uL Red Blood Count 5.62 4.35-5.85 10^6/uL Hemoglobin 15.4 11.5-16.0 G/DL Hematocrit 46 35-52 % Mean Corpuscular Volume 82 80-99 FL Mean Corpuscular Hemoglobin 27 25-34 PG Mean Corpuscular Hemoglobin Concent 34 32-36 G/DL Red Cell Distribution Width 14.9 H 10.0-14.5 % Platelet Count 321 130-400 10^3/uL Mean Platelet Volume 10.2 7.4-10.4 FL Neutrophils (%) (Auto) 78 H 42-75 % Lymphocytes (%) (Auto) 15 12-44 % Monocytes (%) (Auto) 7 0-12 % Eosinophils (%) (Auto) 0 0-10 % Basophils (%) (Auto) 0 0-10 % Neutrophils # (Auto) 12.4 H 1.8-7.8 X 10^3 Lymphocytes # (Auto) 2.4 1.0-4.0 X 10^3 Monocytes # (Auto) 1.1 H 0.0-1.0 X 10^3 Eosinophils # (Auto) 0.1 0.0-0.3 10^3/uL Basophils # (Auto) 0.0 0.0-0.1 10^3/uL Neutrophils % (Manual) 80 % Lymphocytes % (Manual) 12 % Monocytes % (Manual) 5 % Eosinophils % (Manual) 0 % Basophils % (Manual) 0 % Band Neutrophils 2 % Reactive Lymphocytes 1 % Blood Morphology Comment NORMAL Sodium Level 138 135-145 MMOL/L Potassium Level 4.1 3.6-5.0 MMOL/L Chloride Level 106 98-107 MMOL/L Carbon Dioxide Level 20 L 21-32 MMOL/L Anion Gap 12 5-14 MMOL/L Blood Urea Nitrogen 13 7-18 MG/DL Creatinine 0.96 0.60-1.30 MG/DL Estimat Glomerular Filtration Rate > 60 BUN/Creatinine Ratio 14 Glucose Level 230 H 70-105 MG/DL Calcium Level 9.5 8.5-10.1 MG/DL Corrected Calcium 8.5-10.1 MG/DL Total Bilirubin 0.6 0.1-1.0 MG/DL Aspartate Amino Transf (AST/SGOT) 13 5-34 U/L Alanine Aminotransferase (ALT/SGPT) 17 0-55 U/L Alkaline Phosphatase 58 40-136 U/L Total Protein 7.5 6.4-8.2 GM/DL Albumin 4.6 H 3.2-4.5 GM/DL Serum Test, Qualitative NEGATIVE NEGATIVE Urine Color YELLOW Urine Clarity CLEAR Urine pH 5.5 5-9 Urine Specific [place] 1.010 L 1.016-1.022 Urine Protein NEGATIVE NEGATIVE Urine Glucose (UA) 1+ H NEGATIVE Urine Ketones NEGATIVE NEGATIVE Urine Nitrite NEGATIVE NEGATIVE Urine Bilirubin NEGATIVE NEGATIVE Urine Urobilinogen 0.2 < = 1.0 MG/DL Urine Leukocyte Esterase NEGATIVE NEGATIVE Urine RBC (Auto) NEGATIVE NEGATIVE Urine RBC NONE /HPF Urine WBC NONE /HPF Urine Squamous Epithelial Cells 0-2 /HPF Urine Crystals NONE /LPF Urine Bacteria TRACE /HPF Urine Casts NONE /LPF Urine Mucus NEGATIVE /LPF Urine Culture Indicated NO Micro Results Microbiology 02/26/20 Genital Culture, Resulted Pending 02/26/20 Wet Prep - Final, Resulted My Orders Orders - KIMMY CANO APRN Cbc With Automated Diff (02/26/20 10:46) Comprehensive Metabolic Panel (02/26/20 10:46) Hcg,Qualitative Serum (02/26/20 10:46) Ed Iv/Invasive Line Start (02/26/20 10:46) Ua Culture If Indicated (02/26/20 10:46) Ct Abdomen/Pelvis W (02/26/20 10:52) Ketorolac Injection (Toradol Injection) (02/26/20 11:00) Fentanyl Injection (Sublimaze Injection (02/26/20 11:00) Manual Differential (02/26/20 10:14) Iohexol Injection (Omnipaque 350 Mg/Ml 1 (02/26/20 11:15) Received Contrast (Hold Metformin- Contr (02/26/20 11:15) Sodium Chloride Flush (Catheter Flush Sy (02/26/20 11:15) Ns (Ivpb) (Sodium Chloride 0.9% Ivpb Bag (02/26/20 11:15) Ondansetron Injection (Zofran Injectio (02/26/20 11:30) Ondansetron Injection (Zofran Injectio (02/26/20 11:20) Wet Prep (02/26/20 11:44) Neisseria Gonorrhea Swab (02/26/20 11:44) Chlamydia Trachomatis Swab (02/26/20 11:44) Genital Culture (02/26/20 11:44) Ceftriaxone For Iv Use (Rocephin For I (02/26/20 12:45) Azithromycin Tablet (Zithromax Tablet) (02/26/20 12:45) Medications Given in ED Current Medications Medications Dose Ordered Sig/Joselin Route Start Time Stop Time Status Last Admin Dose Admin Ceftriaxone Sodium 1000 mg/ Sterile Water 10 ml @ 200 mls/hr ONCE ONCE IV 02/26/20 12:45 02/26/20 12:47 DC 02/26/20 12:54 200 MLS/HR Fentanyl Citrate 50 mcg ONCE ONCE IVP 02/26/20 11:00 02/26/20 11:01 DC 02/26/20 11:16 50 MCG Iohexol 100 ml ONCE ONCE IV 02/26/20 11:15 02/26/20 11:16 DC 02/26/20 11:30 100 ML Ketorolac Tromethamine 15 mg ONCE ONCE IVP 02/26/20 11:00 02/26/20 11:01 DC 02/26/20 11:14 15 MG Ondansetron HCl 8 mg ONCE ONCE IVP 02/26/20 11:30 02/26/20 11:31 DC 02/26/20 11:23 8 MG Sodium Chloride 100 ml ONCE ONCE IV 02/26/20 11:15 02/26/20 11:16 DC 02/26/20 11:31 80 ML Vital Signs/I&O 02/26/20 09:59 Temp 36.9 Pulse 82 Resp 18 B/P (MAP) 152/102 (119) Pulse Ox 97 O2 Delivery Room Air Blood Pressure Mean: 119 Diagnostic Imaging Diagonstic Imaging: Xray Comments NAME: TERRELL CHAVEZ [facility] REC#: [id number] PT STATUS: REG ER : 1975 PHYSICIAN: KIMMY CANO [employer] ADMIT DATE: 02/26/20/ER Draft Date of Exam:02/26/20 CT ABDOMEN/PELVIS W PROCEDURE: CT abdomen and pelvis with contrast. TECHNIQUE: Multiple contiguous axial images were obtained through the abdomen and pelvis after administration of intravenous contrast. Auto Exposure Controls were utilized during the CT exam to meet ALARA standards for radiation dose reduction. INDICATION: Right lower abdominal pain. No prior studies are available for comparison. Lung bases demonstrate some linear scarring or atelectasis in the left lower lobe. The liver does demonstrate diffuse low density consistent with hepatic steatosis. No discrete liver mass is identified. The gallbladder is surgically absent. No biliary ductal dilatation is identified. The pancreas and spleen are unremarkable. No adrenal mass is detected. Kidneys are unremarkable. Aorta is non-aneurysmal. The small and large bowel loops appear to be normal caliber. Pattern appears to be nonobstructive. The appendix is visualized in the right lower quadrant and appears unremarkable. No free fluid or fluid collection is identified. The bladder and uterus are unremarkable. No abdominal or pelvic lymphadenopathy is seen. Bony structures are nonacute. IMPRESSION: 1. Hepatic steatosis. 2. No CT evidence of acute appendicitis. 3. No acute feature is detected. Dictated on workstation # [id number] Dict: 02/26/20 1153 Trans: 02/26/20 1200 [facility] [id number] Interpreted by: RAZIA DELGADO MD Electronically signed by: Departure Communication (Admissions) [id number]- [id number] she denies any vaginal discharge but she does state that intercourse with her has been uncomfortable for about 2 weeks. She states that they have been for quite some time, they recently got back together 2 weeks ago after he had been with another woman. She is concerned about pelvic infection Impression Primary Impression: Cervicitis Disposition: HOME, SELF-CARE Condition: Stable Departure-Patient Inst. Decision time for Depature: 12:28 Referrals: NO,LOCAL PHYSICIAN (PCP/Family) Primary Care Physician Patient Instructions: Pelvic Inflammatory Disease (DC) Add. Discharge Instructions: 1. Antibiotics as directed in addition to pain medication. Return to ER for any concerns. All discharge instructions reviewed with patient and/or family. Voiced understanding. Scripts Fluconazole (Diflucan) 150 Mg Tablet 150 MG PO DAILY, #2 TAB Prov: KIMMY CANO APRN 02/26/20 Hydrocodone/Acetaminophen (Lorcet 5-325 mg Tablet) 1 Each Tablet 1 EACH PO Q4-6HR PRN for PAIN-MODERATE MDD 10 for 7 Days, #10 TAB . Prov: KIMMY CANO APRN 02/26/20 Doxycycline Hyclate (Doxycycline Hyclate) 100 Mg Tablet 100 MG PO BID, #14 TAB 0 Refills . Prov: KIMMY CANO APRN 02/26/20 KIMMY CANO APRN Feb 26, 2020 10:55
[2020-02-26 10:56] LABS: CALCIUM 9.5 MG/DL (8.5-10.1)
[2020-02-26 10:57] LABS: GLUCOSE 230 MG/DL (70-105); TOTAL PROTEIN 7.5 GM/DL (6.4-8.2)
[2020-02-26 10:58] LABS: CARBON DIOXIDE 20 MMOL/L (21-32)
[2020-02-26 10:59] LABS: BILIRUBIN,TOTAL 0.6 MG/DL (0.1-1.0)
[2020-02-26 11:00] LABS: ALKALINE PHOSPHATASE 58 U/L (40-136); CREATININE SERUM 0.96 MG/DL (0.60-1.30); GFR ESTIMATED > 60
[2020-02-26] MEDS ORDERED: fentaNYL INJECTION 100 MCG/2 ML AMP IVP ONE (11:00)
[2020-02-26] MEDS ORDERED: KETOROLAC 30 MG/ML VIAL IVP ONE (11:00)
[2020-02-26 11:01] LABS: BUN/CREATININE RATIO 14
[2020-02-26 11:03] LABS: ALANINE AMINOTRANSFERASE 17 U/L (0-55)
[2020-02-26 11:06] LABS: BACTERIA,URINE TRACE /HPF; SQUAMOUS EPITHELIAL CELL,UR 0-2 /HPF
[2020-02-26] MEDS ORDERED: HOLD METFORMIN - RECEIVED CONTRAST 20 ML VIAL IV SCH (11:15)
[2020-02-26] MEDS ORDERED: IOHEXOL 350 MG/ML 100 ML (OMNIPAQUE 350) VIAL IV ONE (11:15)
[2020-02-26] MEDS ORDERED: CATHETER FLUSH 10 ML SYR IV PRN (11:15)
[2020-02-26] MEDS ORDERED: NS 100 ML (IVPB) BAG IV ONE (11:15)
[2020-02-26] MEDS ORDERED: ONDANSETRON 4 MG/2 ML (SDV) Z0FRAN ONE (11:20)
[2020-02-26 11:23] LABS: BAND NEUTROPHILS 2 %; BASOPHILS % (MANUAL) 0 %; EOSINOPHILS % (MANUAL) 0 %; LYMPHOCYTES % (MANUAL) 12 %; MONOCYTES % (MANUAL) 5 %; NEUTROPHILS % (MANUAL) 80 %; RBC MORPH NORMAL; REACTIVE LYMPHOCYTES 1 %
[2020-02-26] MEDS ORDERED: ONDANSETRON 4 MG/2 ML (SDV) Z0FRAN IVP ONE (11:30)
--- NOTE | 2020-02-26 12:00 | Diagnostic Imaging Report ---
PROCEDURE: CT abdomen and pelvis with contrast. TECHNIQUE: Multiple contiguous axial images were obtained through the abdomen and pelvis after administration of intravenous contrast. Auto Exposure Controls were utilized during the CT exam to meet ALARA standards for radiation dose reduction. INDICATION: Right lower abdominal pain. No prior studies are available for comparison. Lung bases demonstrate some linear scarring or atelectasis in the left lower lobe. The liver does demonstrate diffuse low density consistent with hepatic steatosis. No discrete liver mass is identified. The gallbladder is surgically absent. No biliary ductal dilatation is identified. The pancreas and spleen are unremarkable. No adrenal mass is detected. Kidneys are unremarkable. Aorta is non-aneurysmal. The small and large bowel loops appear to be normal caliber. Pattern appears to be nonobstructive. The appendix is visualized in the right lower quadrant and appears unremarkable. No free fluid or fluid collection is identified. The bladder and uterus are unremarkable. No abdominal or pelvic lymphadenopathy is seen. Bony structures are nonacute. IMPRESSION: 1. Hepatic steatosis. 2. No CT evidence of acute appendicitis. 3. No acute feature is detected. Dictated by: Dictated on workstation # [id number]
[2020-02-26] MEDS ORDERED: DOXY100T2 PO ×2 (12:29→13:31)
[2020-02-26] MEDS ORDERED: HYDR-3870 PO ×2 (12:29→13:31)
[2020-02-26] MEDS ORDERED: cefTRIAXone FOR IV USE 1,000 MG in WATER (STERILE) FOR INJECTION 10 ML IV ONE (12:45)
[2020-02-26] MEDS ORDERED: AZITHROMYCIN 250 MG TAB (ZITHROMAX) PO SCH (12:45)
[2020-02-26] MEDS ORDERED: FLUC150T PO (13:33)
[2020-02-26 13:38] VITALS: BP 122/45
== END 2020-02-26 13:38 | disposition home or self-care (01) ==
LOC: EDUNIT# 09:43 → ER 09:44
DX: N72 Inflammatory disease of cervix uteri (principal); J45.909 Unspecified asthma, uncomplicated; F17.210 Nicotine dependence, cigarettes, uncomplicated; Z88.0 Allergy status to penicillin; Z79.52 Long term (current) use of systemic steroids
CPT/HCPCS: 36415; 74177; 80053; 81000; 84703; 85007; 85027; 87070; 87205; 87210; 87491; 87591

== ENCOUNTER → 2020-09-28 | Outpatient (CLI) | payer OTHER ==
[~2020-09-28] MED LIST changes: +DOXY100T2 PO; +FLUC150T PO; +HYDR-3870 PO
--- NOTE | 2020-09-28 11:31 | Diagnostic Imaging Report ---
Digital mammogram. Indication: Bilateral screening This is the patient's baseline study. At his time there are no current complaints. There are scattered fibroglandular densities in both breasts which could obscure a lesion. There is no primary or secondary sign of malignancy noted. Impression: 1. There is no evidence of malignancy. 2. The patient should have her annual bilateral screening mammogram on schedule in September 2021. ACR BI-RADS Category 1: Negative. Result letter will be mailed to the patient. Note: At least 10% of breast cancer is not imaged by mammography. Dictated by: Dictated on workstation # [id number]
== END ==
LOC: RAD 08:00
PROVIDERS: ATTEND Family Medicine
DX: Z12.31 Encounter for screening mammogram for malignant neoplasm of breast (principal)
CPT/HCPCS: 77063; 77067

== ENCOUNTER 2020-10-07 05:29 | Outpatient (RCR) | payer OTHER ==
[~2020-10-07] VITALS: Ht 165.1 cm; Wt 88.5 kg
== END 2020-10-07 09:42 | disposition home or self-care (01) ==
LOC: PREOP 05:29
PROVIDERS: ATTEND Surgery
DX: Z01.818 Encounter for other preprocedural examination (principal); K29.70 Gastritis, unspecified, without bleeding; Z20.822 Contact with and (suspected) exposure to COVID-19
CPT/HCPCS: 87635

== ENCOUNTER 2020-10-08 08:45 | Day surgery (SDC) | payer OTHER ==
[~2020-10-08] VITALS: Ht 165 cm; Wt 88.5 kg
[2020-10-08] MEDS ORDERED: LACTATED RINGERS 1,000 ML IV ONE (09:09)
[2020-10-08] MEDS ORDERED: LACTATED RINGERS 1,000 ML IV STA (09:10)
[2020-10-08] MEDS ORDERED: HURRICAINE EXT TUBE (BENZOCAINE) XX PRN (09:15)
[2020-10-08 09:26] VITALS: BP 130/88
[2020-10-08] MEDS ORDERED: MIDAZOLAM 2 MG/2 ML (VERSED) VIAL ONE (10:38)
[2020-10-08] MEDS ORDERED: proPOfol 200 MG/20 ML (DIPRIVAN) VIAL IV ONE (10:38)
--- NOTE | 2020-10-08 11:02 | Progress Note-Pre Operative ---
Pre-Operative Progress Note H&P Reviewed The H&P was reviewed, patient examined and no changes noted. Time Seen by Provider: 10:59 Date H&P Reviewed: Oct 08, 2020 Time H&P Reviewed: 10:59 Pre-Operative Diagnosis: Gastritis, Bloating, Abdominal pain, Family hx of colon CA REBECCA GAUTHIER DO Oct 08, 2020 11:02
[2020-10-08 11:30] VITALS: BP 121/69
--- NOTE | 2020-10-08 11:34 | Progress Note-Post Operative ---
Post-Operative Progess Note Surgeon (s)/Form Setter Steel Forms (s) Surgeon REBECCA GAUTHIER DO Form Setter [employer] Forms: none Pre-Operative Diagnosis Gastritis, Bloating, Abdominal pain, Family hx of colon CA Post-Operative Diagnosis Gastritis ??Barretts Esophagus Colon polyp diverticula Int hemorrhoids Procedure & Operative Findings Date of Procedure 10/08/20 Procedure Performed/Findings EGD with bx Colon with bx Anesthesia Type IV sedation by Anesthesia Estimated Blood Loss Estimated blood loss (mL): scant Specimens/Packing Specimens Removed antral bx body of stomach bx GE jxn Sigmoid polyp REBECCA GAUTHIER DO Oct 08, 2020 11:34
--- NOTE | 2020-10-08 11:36 | Endoscopy Discharge Instruct ---
Endo Procedure/Findings Findings 1.: Gastritis 2.: Duffy's Esophagus 3.: Polyp 4.: Diverticulosis, Internal Hemorrhoids Discharge Instructions - Activity: You might feel a little sleepy until tomorrow. This is due to the medicine you received to relax you. Until tomorrow, you should: NOT drive a car, operate machinery or power tools. NOT drink any alcoholic beverages. NOT make any important decisions or sign importortant papers. Do not return to work until tomorrow, unless otherwise instructed. Resume previous activities tomorrow. Diet: Start by taking liquids. If you tolerate liquids, advance to solid food. 1.: Colonscopy in 5 years 2.: EGD in 6-8 weeks, EGD in 1 year Notify Physician - If you experience excessive bleeding, unusual abdominal pain, fever, or chest pain, contact your doctor immediately. REBECCA GAUTHIER DO Oct 08, 2020 11:36
[2020-10-08 12:05] VITALS: BP 137/96
[2020-10-08 12:20] VITALS: BP 137/96
--- NOTE | 2020-10-08 13:13 | Anesthesia-General Post-Op ---
MAC Patient Condition Mental Status/LOC: Same as Preop Cardiovascular: Satisfactory Nausea/Vomiting: Absent Respiratory: Satisfactory Pain: Controlled Complications: Absent Post Op Complications Complications None Follow Up Care/Instructions Patient Instructions None needed. Anesthesiology Discharge Order Discharge Order Patient was seen after the procedure and she was doing well, no complaints, stable vital signs, no apparent adverse anesthesia problems. EVI MELGOZA DO Oct 08, 2020 13:13
--- NOTE | 2020-10-08 13:42 | NUR ---
1130 - PT STATED SHE FELT LIKE SHE HAD BITTEN HER LIP. NOTED SMALL ABRASION ON LEFT SIDE OF LOWER LIP. Addendum: 10/08/20 at 1343 by HARI NGO RN Amended: Links added.
--- NOTE | 2020-10-08 22:48 | OPERATIVE REPORT ---
DATE OF SERVICE: PREOPERATIVE DIAGNOSES: Severe abdominal pain, change in bowel habits, family history of colon cancer. POSTOPERATIVE DIAGNOSES: Gastritis, esophagitis, colon polyps, diverticula, internal hemorrhoids. PROCEDURES: 1. EGD with biopsy. 2. Colonoscopy with cold biopsy. SURGEON: Ian Smalls DO RETIREMENT PLAN COUNSELOR: None. ANESTHESIA: IV sedation by the anesthesiologist. SPECIMEN: Biopsy from the antrum, biopsy of body of stomach, biopsy from the GE junction x2 as well as a sigmoid polyp. BLOOD LOSS: Scant. FLUIDS: Per anesthesia. POSTOPERATIVE CONDITION: Stable. INDICATION FOR PROCEDURE: The patient is a 45-year-old female, who has been having severe abdominal pain, trouble eating, bloating, family history of colon cancer and she needed a workup. FINDINGS: The patient had some pretty severe gastritis, which looked like almost a watermelon belly and she had what looked like some esophagitis as well. In the colon, she had small diverticula, but no inflammation. Small hemorrhoids and a small sigmoid polyp. PROCEDURE NOTE: After informed consent was obtained, the patient was brought to the endoscopy suite, placed in bed in left lateral decubitus position. She was administered IV sedation by anesthesia, who then monitored her vitals the entire time, heart rate, blood pressure and pulse ox, started with the EGD, placing scope down the mouth through the esophagus into the stomach. Upon entering the stomach, noted some inflammation, looked like gastritis, looked like a watermelon belly, pushed into the duodenum. Duodenum looked a little bit inflamed in the first portion, but pass this second and third portion looked normal. Pulled back into the antrum, did a biopsy of the antrum. Retroflexed the scope, did a biopsy of the body of stomach and then pulled the scope up into the GE junction where looked like there were some changes and did two biopsies of the GE junction, then suctioned all the air out of the stomach and pulled the scope up the esophagus and out the mouth. Switched camera, switched gloves, went down below, started the colonoscopy, pushed in, on the way in, noted some diverticula, took a picture. Pushed all the way to the cecum about 150 cm in, took a picture of appendiceal orifice, then able to get into terminal ileum and then slowly withdrew the scope insufflating to look circumferentially at the dunbar looking the cecum, up the ascending colon to the hepatic flexure, then down the transverse colon, splenic flexure, into the descending colon down into the sigmoid finally and in the sigmoid, saw small polyp, took a picture of this and then did a cold biopsy, then down into the rectum, retroflexed in rectal vault, saw some minimal internal hemorrhoids, took a picture of this and then removed the scope. The patient tolerated the procedure and she was recovered in endoscopy suite. Job ID: [id number] DocumentID: [id number] Dictated Date: 10/08/2020 17:50:18 Stereotyper Date: 10/08/2020 22:48:11 Dictated By: IAN SMALLS DO
== END 2020-10-08 12:20 | disposition home or self-care (01) ==
LOC: ENDO 08:45
PROVIDERS: ATTEND Surgery
DX: K29.50 Unspecified chronic gastritis without bleeding (principal); K63.5 Polyp of colon; K64.8 Other hemorrhoids; K57.30 Diverticulosis of large intestine without perforation or abscess without bleeding; K20.90 Esophagitis, unspecified without bleeding; F17.210 Nicotine dependence, cigarettes, uncomplicated; Z79.899 Other long term (current) drug therapy; Z88.0 Allergy status to penicillin; Z88.5 Allergy status to narcotic agent; Z86.010 Personal history of colon polyps; Z80.0 Family history of malignant neoplasm of digestive organs
CPT/HCPCS: 36415; 84703; 88305

== ENCOUNTER 2021-10-24 13:17 | Emergency (ER) | payer OTHER ==
[~2021-10-24 13:17] MED LIST changes: +CYCL10TA25 PO; -CYCL10TA9 PO
--- NOTE | 2021-10-24 13:23 | ED General ---
General Stated Complaint: FELL ON ICE AND HURT L KNEE Source of Information: Patient Exam Limitations: No Limitations History of Present Illness Date Seen by Provider: Oct 24, 2021 Time Seen by Provider: 13:22 Initial Comments To ER with pain over the medial aspect of left knee. This occurred yesterday while she was going down her steps slipped on some ice and twisted the left knee. She did not hit the knee on anything nor did she landed on the knee. She has pain with weightbearing rated at 10 out of 10. She took a Tylenol yesterday but nothing today. Timing/Duration: 1-2 Days Severity: Moderate Associated Systoms: Denies Symptoms Allergies and Home Medications Allergies Coded Allergies: Penicillins (Verified Adverse Reaction, Unknown, 03/06/17) DAD IS ALLERGIC AND SHE DOES NOT WANT IT. Patient Home Medication List Home Medication List Reviewed: Yes Ibuprofen (Ibuprofen) 800 Mg Tablet, 800 MG PO Q8H PRN for PAIN Prescribed by: KIMMY CANO on 10/24/21 1347 Oxycodone HCl/Acetaminophen (Percocet 5-325 mg Tablet) 1 Each Tablet, 1 TAB PO Q4H Prescribed by: KIMMY CANO on 10/24/21 1347 Review of Systems Review of Systems Constitutional: see HPI EENTM: see HPI Respiratory: no symptoms reported Cardiovascular: no symptoms reported Genitourinary: no symptoms reported Musculoskeletal: see HPI Skin: no symptoms reported Psychiatric/Neurological: No Symptoms Reported Past Fyhubim-Wjqiob-Brakgm Hx Seasonal Allergies Seasonal Allergies: No Past Medical History Surgeries: Yes (EXP LAP) Gallbladder, Tubal Ligation Respiratory: Yes Asthma Cardiac: No Neurological: No Genitourinary: No Gastrointestinal: Yes (CONSTIPATION AND DIARRHEA) Musculoskeletal: No Endocrine: No HEENT: No Cancer: No Psychosocial: No Integumentary: No Family Medical History No Pertinent Family Hx Physical Exam Vital Signs Vital Signs - First Documented 10/24/21 13:35 Temp 36.2 Pulse 91 Resp 16 B/P (MAP) 155/94 (114) Pulse Ox 99 O2 Delivery Room Air Capillary Refill : Height, Weight, BMI Height: 5'5.00" Weight: 160lbs. oz. 72.551523dc; 32.50 BMI Method:Estimated General Appearance: No Apparent Distress, WD/WN Eyes: Bilateral Eye Normal Inspection, Bilateral Eye PERRL Neck: Full Range of Motion, Normal Inspection Respiratory: No Accessory Muscle Use, No Respiratory Distress Cardiovascular: Regular Rate, Rhythm, Normal Peripheral Pulses Gastrointestinal: Non Tender, Soft Extremity: Normal Capillary Refill, Normal Inspection, Other (Strong dorsalis pedis pulse. No appreciable swelling to any part of the leg. There is tenderness to palpation over the medial joint line but there is no palpable effusion erythema or ecchymosis. Left posterior tibial pulse +2 in strength. Skin is warm and dry) Neurologic/Psychiatric: Alert, Oriented x3 Skin: Normal Color, Warm/Dry Progress/Results/Core Measures Suspected Sepsis SIRS Temperature: Pulse: Respiratory Rate: Blood Pressure / Mean: Results/Orders My Orders Orders - KIMMY CANO APRN Knee, Left, 3 Views (10/24/21 13:22) Oxycodone/Apap 5/325mg Tablet (Percocet (10/24/21 13:45) Ibuprofen Tablet (Motrin Tablet) (10/24/21 13:45) Crutches (10/24/21 13:55) Medications Given in ED Current Medications Medications Dose Ordered Sig/Joselin Route Start Time Stop Time Status Last Admin Dose Admin Ibuprofen 800 mg ONCE ONCE PO 10/24/21 13:45 10/24/21 13:46 DC 10/24/21 13:37 800 MG Oxycodone/ Acetaminophen 1 tab ONCE ONCE PO 10/24/21 13:45 10/24/21 13:46 DC 10/24/21 13:37 1 TAB Vital Signs/I&O 10/24/21 13:35 Temp 36.2 Pulse 91 Resp 16 B/P (MAP) 155/94 (114) Pulse Ox 99 O2 Delivery Room Air Capillary Refill : Departure Communication (Admissions) NAME: TERRELL CHAVEZ [facility] REC#: [id number] PT STATUS: REG ER : 1975 PHYSICIAN: KIMMY CANO APRN ADMIT DATE: 10/24/21/ER Draft Date of Exam:10/24/21 KNEE, LEFT, 3 VIEWS EXAMINATION: Left knee radiographs, 3 views. COMPARISON: None. HISTORY: 46-year-old female, fall on ice. Left knee pain. FINDINGS: There is no identified acute fracture. The joint spaces are well preserved. There is no knee joint effusion. IMPRESSION: Unremarkable radiographs of the left knee. Dictated on workstation # [id number] Dict: 10/24/21 1358 Trans: 10/24/21 1411 [facility] [id number] Interpreted by: KONG OLGUIN MD Electronically signed by: Raymundo Primary Impression: Internal derangement of left knee Disposition: HOME, SELF-CARE Condition: Stable Departure-Patient Inst. Decision time for Depature: 13:23 Referrals: BAM HADLEY MD (PCP/Family) Primary Care Physician Patient Instructions: Internal Derangement of the Knee Add. Discharge Instructions: 1. Follow-up with Dr. Hadley. Call tomorrow to make an appointment to be seen if pain persists then MRI would be warranted. Return to ER for any worsening. Pain medication as directed. Use the crutches as needed for pain. When you are able to walk without significant pain in the knee then you can stop using the crutches Scripts Oxycodone HCl/Acetaminophen (Percocet 5-325 mg Tablet) 1 Each Tablet 1 TAB PO Q4H for PAIN-MODERATE MDD 6 TABS for 7 Days, #10 TAB Prov: KIMMY CANO APRN 10/24/21 Ibuprofen (Ibuprofen) 800 Mg Tablet 800 MG PO Q8H PRN for PAIN, #30 TAB 0 Refills Prov: KIMMY CANO APRN 10/24/21 Work/School Note: Work Release Form Date Seen in the Emergency Department: Oct 24, 2021 Return to Work: Oct 26, 2021 Copy Copies To 1: BAM HADLEY MD, PETER J APRN Oct 24, 2021 13:23
[2021-10-24] MEDS ORDERED: oxyCODONE/APAP 5/325MG (PERCOCET 5) TABLET PO ONE (13:45)
[2021-10-24] MEDS ORDERED: IBUPROFEN 800 MG (MOTRIN) TAB PO ONE (13:45)
[2021-10-24] MEDS ORDERED: OXYC1TAB87 PO ×2 (13:47→16:56)
[2021-10-24] MEDS ORDERED: IBUP-1780 PO ×2 (13:47→16:56)
--- NOTE | 2021-10-24 14:11 | Diagnostic Imaging Report ---
EXAMINATION: Left knee radiographs, 3 views. COMPARISON: None. HISTORY: 46-year-old female, fall on ice. Left knee pain. FINDINGS: There is no identified acute fracture. The joint spaces are well preserved. There is no knee joint effusion. IMPRESSION: Unremarkable radiographs of the left knee. Dictated by: Dictated on workstation # [id number]
[2021-10-24 14:38] VITALS: BP 148/87
== END 2021-10-24 14:39 | disposition home or self-care (01) ==
LOC: EDUNIT# 13:17 → ER 13:21
DX: M23.92 Unspecified internal derangement of left knee (principal); J45.909 Unspecified asthma, uncomplicated
CPT/HCPCS: 73562; 99283

== ENCOUNTER → 2021-11-03 | Outpatient (CLI) | payer OTHER ==
[~2021-11-03] MED LIST changes: +IBUP-1780 PO; +OXYC1TAB87 PO
--- NOTE | 2021-11-03 10:08 | Diagnostic Imaging Report ---
EXAMINATION: Magnetic resonance imaging of the left knee without intravenous contrast. DATE: November 03, 2021. COMPARISON: Left knee radiographs October 24, 2021. INDICATION: 46-year-old female, fall 2 weeks ago. Left knee pain. TECHNIQUE: Multiplanar, multisequence noncontrast enhanced MR imaging was accomplished. FINDINGS: MENISCI: The medial meniscus is intact. The lateral meniscus is intact. LIGAMENTS AND TENDONS: The anterior and posterior cruciate ligaments are intact. There is abnormal thickening and increased signal of the superficial component of the medial collateral ligament complex with edema on both sides of the ligament, consistent with a low-grade sprain injury. The iliotibial band, mid third lateral capsular ligament, fibular collateral ligament, biceps femoris tendon, and conjoined tendon are intact. The quadriceps tendon and patella ligament are intact. JOINT: The articular cartilage surfaces are intact. There is no knee joint effusion, prominent synovitis, or intra-articular body. BONE: There is unremarkable bone marrow signal. Specifically, negative for fracture, osteomyelitis, osteonecrosis, or marrow replacing process. BURSAE AND SOFT TISSUES: There is no Haque's cyst. Additional soft tissue assessment is unremarkable. IMPRESSION: 1. Low-grade sprain injury of the superficial component of the medial collateral ligament complex. 2. Intact medial and lateral meniscus. 3. Intact anterior and posterior cruciate ligaments. Additional ligaments and tendons not already described are intact. 4. No acute fracture or bone contusion. 5. Intact articular cartilage. No knee joint effusion. Dictated by: Dictated on workstation # [id number]
== END ==
LOC: RAD 08:00
PROVIDERS: ATTEND Nurse Practitioner Family
DX: S83.412A Sprain of medial collateral ligament of left knee, initial encounter (principal); W19.XXXA Unspecified fall, initial encounter
CPT/HCPCS: 73721

== ENCOUNTER 2022-01-13 14:05 | Emergency (ER) | payer SELFPAY ==
[~2022-01-13] VITALS: Ht 165.1 cm; Wt 84.4 kg
[2022-01-13] MEDS ORDERED: ONDANSETRON 4 MG/2 ML (SDV) Z0FRAN IVP ONE (14:30)
[2022-01-13] MEDS ORDERED: NS IV 1000 ML 1,000 ML IV SCH (14:30)
--- NOTE | 2022-01-13 14:32 | ED General ---
General Chief Complaint: Dizziness/Syncope Stated Complaint: DIZZINESS Nursing Triage Note: pt to room by wheelchair. pt states she became dizzy "after lunch" today around 1300. pt states she feels dizzy while sitting or laying, weak, and nauseated. pt states this happened yesterday, but it went away. pt states it feels like everything is spinning around her. pt denies any injuries or head injury Source of Information: Patient Exam Limitations: No Limitations History of Present Illness Date Seen by Provider: Jan 13, 2022 Time Seen by Provider: 02:20 Initial Comments Patient is a 46-year-old female who presents to the emergency department with an acute onset of dizziness after lunch at around 1 10/19/2014 today. Patient states that she feels dizzy regardless of what position she is in. She feels generally weak and quite nauseated. She states she had a similar episode yesterday but it was very brief. Patient denies any headache or visual changes. She states it feels like the room is spinning around her. She states she has had vertigo in the past but this feels "different". She has not taken any medications to try and alleviate her symptoms. She denies any recent illnesses such as GI upset, diarrhea, fever, chills, sinus congestion. She started her period within the last 1 or 2 days. She denies abdominal pain, chest pain or shortness of breath. No head injuries. She feels really off balance when walking. All other review of systems reviewed and negative except as stated. Timing/Duration: 1 Hour Severity: Severe Associated Systoms: Nausea/Vomiting Allergies and Home Medications Allergies Coded Allergies: Penicillins (Verified Adverse Reaction, Unknown, 03/06/17) DAD IS ALLERGIC AND SHE DOES NOT WANT IT. Patient Home Medication List Home Medication List Reviewed: Yes Ibuprofen (Ibuprofen) 800 Mg Tablet, 800 MG PO Q8H PRN for PAIN Prescribed by: KIMMY CANO on 10/24/211655 Oxycodone HCl/Acetaminophen (Percocet 5-325 mg Tablet) 1 Each Tablet, 1 TAB PO Q4H Prescribed by: KIMMY CANO on 10/24/211655 Review of Systems Review of Systems Constitutional: see HPI, malaise EENTM: no symptoms reported Respiratory: no symptoms reported Cardiovascular: no symptoms reported Gastrointestinal: nausea Genitourinary: no symptoms reported : No Musculoskeletal: no symptoms reported Skin: no symptoms reported Psychiatric/Neurological: Other (dizziness) All Other Systems Reviewed Negative Unless Noted: Yes Past Pjhmoel-Jvuadd-Frmsjo Hx Seasonal Allergies Seasonal Allergies: No Past Medical History Surgery/Hospitalization HX: DM Surgeries: Yes (EXP LAP) Gallbladder, Tubal Ligation Respiratory: Yes Asthma Cardiac: No Neurological: No Genitourinary: No Gastrointestinal: Yes (CONSTIPATION AND DIARRHEA) Musculoskeletal: No Endocrine: No HEENT: No Cancer: No Psychosocial: No Integumentary: No Family Medical History No Pertinent Family Hx Physical Exam Vital Signs Vital Signs - First Documented 01/13/22 14:09 Temp 37.0 Pulse 77 Resp 19 B/P (MAP) 151/88 (109) Pulse Ox 95 Capillary Refill : Height, Weight, BMI Height: 5'5.00" Weight: 160lbs. oz. 72.433642ps; 30.00 BMI Method:Estimated General Appearance: No Apparent Distress, WD/WN, Anxious Eyes: Bilateral Eye Normal Inspection, Bilateral Eye PERRL, Bilateral Eye EOMI (no nystagmus) HEENT: PERRL/EOMI, TMs Normal (right TM occluded by cerumen), Pharynx Normal, Other (appears awequately hydrated) Neck: Full Range of Motion, Normal Inspection, Supple Respiratory: Lungs Clear, Normal Breath Sounds, No Accessory Muscle Use, No Respiratory Distress Cardiovascular: Regular Rate, Rhythm, Normal Peripheral Pulses Gastrointestinal: Non Tender, Soft Extremity: Normal Inspection Neurologic/Psychiatric: Alert, Oriented x3, No Motor/Sensory Deficits, stake driver II-XII Norm as Tested, Other (i did attempt to walk the patient, she had to use the side of the bed and my hand for assistance - she seemed ataxic; not wide based in gait - slow and deliberate; neg romberg; no pronator drift. Normal finger to nose, normal heel to zhu) Skin: Normal Color, Warm/Dry Progress/Results/Core Measures Suspected Sepsis SIRS Temperature: Pulse: 77 Respiratory Rate: 19 Laboratory Tests 01/13/22 14:32: White Blood Count 13.3H Blood Pressure 151 /88 Mean: 109 Laboratory Tests 01/13/22 14:32: Creatinine 0.82, Platelet Count 366 Results/Orders Lab Results Laboratory Tests Test 01/13/22 14:32 Range/Units White Blood Count 13.3 H 4.3-11.0 10^3/uL Red Blood Count 5.83 H 3.80-5.11 10^6/uL Hemoglobin 15.4 11.5-16.0 g/dL Hematocrit 47 35-52 % Mean Corpuscular Volume 81 80-99 fL Mean Corpuscular Hemoglobin 26 25-34 pg Mean Corpuscular Hemoglobin Concent 33 32-36 g/dL Red Cell Distribution Width 13.4 10.0-14.5 % Platelet Count 366 130-400 10^3/uL Mean Platelet Volume 10.1 9.0-12.2 fL Immature Granulocyte % (Auto) 0 % Neutrophils (%) (Auto) 68 42-75 % Lymphocytes (%) (Auto) 24 12-44 % Monocytes (%) (Auto) 7 0-12 % Eosinophils (%) (Auto) 1 0-10 % Basophils (%) (Auto) 0 0-10 % Neutrophils # (Auto) 9.0 H 1.8-7.8 10^3/uL Lymphocytes # (Auto) 3.1 1.0-4.0 10^3/uL Monocytes # (Auto) 0.9 0.0-1.0 10^3/uL Eosinophils # (Auto) 0.2 0.0-0.3 10^3/uL Basophils # (Auto) 0.0 0.0-0.1 10^3/uL Immature Granulocyte # (Auto) 0.0 0.0-0.1 10^3/uL Sodium Level 137 135-145 MMOL/L Potassium Level 3.6 3.6-5.0 MMOL/L Chloride Level 100 98-107 MMOL/L Carbon Dioxide Level 21 21-32 MMOL/L Anion Gap 16 H 5-14 MMOL/L Blood Urea Nitrogen 13 7-18 MG/DL Creatinine 0.82 0.60-1.30 MG/DL Estimat Glomerular Filtration Rate 90 BUN/Creatinine Ratio 16 Glucose Level 297 H 70-105 MG/DL Calcium Level 9.5 8.5-10.1 MG/DL My Orders Orders - KASHMIR PALACIOS MD Ct Head Wo (01/13/22 14:27) Ns Iv 1000 Ml (Sodium Chloride 0.9%) (01/13/22 14:30) Ondansetron Injection (Zofran Injectio (01/13/22 14:30) Cbc With Automated Diff (01/13/22 14:27) Basic Metabolic Panel (01/13/22 14:27) Diazepam Injection (Valium Injection) (01/13/22 15:30) Medications Given in ED Current Medications Medications Dose Ordered Sig/Joselin Route Start Time Stop Time Status Last Admin Dose Admin Diazepam 2 mg ONCE ONCE IVP 01/13/22 15:30 01/13/22 15:31 DC 01/13/22 16:07 2 MG Ondansetron HCl 8 mg ONCE ONCE IVP 01/13/22 14:30 01/13/22 14:31 DC 01/13/22 14:36 8 MG Vital Signs/I&O 01/13/22 14:09 Temp 37.0 Pulse 77 Resp 19 B/P (MAP) 151/88 (109) Pulse Ox 95 Capillary Refill : Blood Pressure Mean: 109 Progress Note #1: Time: 16:57 Progress Note Patient feels better after the Zofran, she is not quite as dizzy as she was upon arrival. The Valium seems to have had no significant benefit. Although she is able to stand and walk to the bathroom. She does not have ataxia currently. I can tell however she is still little bit dizzy. She remains without nystagmus on physical examination. Speech is clear, not slurred. Neurologic exam remains normal. Labs have been reviewed, she does have a quite elevated blood sugar and tells me that she is noted to be diabetic but is not on any medications since h er a year ago in February. She is supposed to be controlling her diabetes with her diet. She will follow-up towards the end of the year with her primary care physician. We have discussed potential complications with not controlling her sugar. She is quite depressed since the of her . She does have a therapist. No thoughts of self-harm/suicide. I am going to send her home with some nausea medications as well as meclizine. Return precautions discussed. Progress Note #2: Time: 17:26 Progress Note Feels much better after walking to the bathroom, I was able to get a smile out of her. Still a tad bit queasy and better with eyes closed. We discussed dosing of meclizine and zofran. I again encouraged follow up with Dr Hadley's office and control of her blood sugar. Diagnostic Imaging Diagonstic Imaging: CT Comments [facility], [place] NAME: TERRELL CHAVEZ [facility] REC#: [id number] PT STATUS: REG ER : 1975 PHYSICIAN: KASHMIR PALACIOS MD ADMIT DATE: 01/13/22/ER Signed Date of Exam:01/13/22 CT HEAD WO PROCEDURE: CT head without contrast. TECHNIQUE: Multiple contiguous axial images were obtained through the brain without the use of intravenous contrast. Auto Exposure Controls were utilized during the CT exam to meet ALARA standards for radiation dose reduction. INDICATION: Nausea, extreme dizziness. COMPARISON: No priors. FINDINGS: There is no intracranial hemorrhage, hydrocephalus, cerebral edema, mass or mass effect. There is no evidence for elevated intracranial pressures. There are no acute or abnormal extra-axial fluid collections. There is no mastoid effusion. No cerebellopontine angle mass or mass effect. The basilar cisterns are patent. No focal or generalized cerebral edema. No calvarial fracture deformity. The orbits and paranasal sinuses normal. IMPRESSION: Normal CT head. Dictated by: Dictated on workstation # [id number] Dict: 01/13/22 1513 Trans: 01/13/22 1653 [facility] [id number] Interpreted by: JIA GRIFFITH Electronically signed by: JIA GRIFFITH 01/13/22 1653 Departure Impression Primary Impression: Vertigo Additional Impression: Hyperglycemia due to type 2 diabetes mellitus Qualified Codes: E11.65 - Type 2 diabetes mellitus with hyperglycemia Disposition: 01 HOME, SELF-CARE Condition: Improved Departure-Patient Inst. Decision time for Depature: 16:59 Referrals: BAM HADLEY MD (PCP/Family) Primary Care Physician Patient Instructions: Vertigo (a Type of Dizziness) (DC) Add. Discharge Instructions: Drink plenty of fluids to stay well-hydrated. Please go ahead and call for a follow-up appointment with Dr. Hadley's office in the next week. I have sent prescriptions to your pharmacy for nausea medications as well as meclizine. The meclizine is for dizziness you can take 1 every 6 hours. The nausea medication, ondansetron you can take every 8 hours. If you develop a headache, worsening dizziness, or any other emergent concerning symptoms please come back to the emergency department for reevaluation. Scripts Ondansetron (Ondansetron Odt) 4 Mg Tab.rapdis 4 MG PO Q8H PRN for NAUSEA/VOMITING, #20 TAB 0 Refills Prov: KASHMIR PALACIOS MD 01/13/22 Meclizine HCl (Meclizine HCl) 25 Mg Tablet 25 MG PO Q6H PRN for dizziness, #30 TAB Prov: KASHMIR PALACIOS MD 01/13/22 Copy Copies To 1: BAM HADLEY MD, KATHRYN M MD Jan 13, 2022 14:32
[2022-01-13 14:57] LABS: BASOPHILS % (AUTO) 0 % (0-10); EOSINOPHILS # (AUTO) 0.2 10^3/uL (0.0-0.3); EOSINOPHILS % (AUTO) 1 % (0-10); HEMATOCRIT 47 % (35-52); HEMOGLOBIN 15.4 g/dL (11.5-16.0); LYMPHOCYTES # (AUTO) 3.1 10^3/uL (1.0-4.0); LYMPHOCYTES % (AUTO) 24 % (12-44); MEAN CORPUSCULAR HEMOGLOBIN 26 pg (25-34); MEAN CORPUSCULAR HGB CONC 33 g/dL (32-36); MEAN CORPUSCULAR VOLUME 81 fL (80-99); MEAN PLATELET VOLUME 10.1 fL (9.0-12.2); MONOCYTES # (AUTO) 0.9 10^3/uL (0.0-1.0); MONOCYTES % (AUTO) 7 % (0-12); NEUTROPHILS % (AUTO) 68 % (42-75); PLATELET COUNT 366 10^3/uL (130-400); WHITE BLOOD COUNT 13.3 10^3/uL (4.3-11.0)
--- NOTE | 2022-01-13 15:18 | Diagnostic Imaging Report ---
PROCEDURE: CT head without contrast. TECHNIQUE: Multiple contiguous axial images were obtained through the brain without the use of intravenous contrast. Auto Exposure Controls were utilized during the CT exam to meet ALARA standards for radiation dose reduction. INDICATION: Nausea, extreme dizziness. COMPARISON: No priors. FINDINGS: There is no intracranial hemorrhage, hydrocephalus, cerebral edema, mass or mass effect. There is no evidence for elevated intracranial pressures. There are no acute or abnormal extra-axial fluid collections. There is no mastoid effusion. No cerebellopontine angle mass or mass effect. The basilar cisterns are patent. No focal or generalized cerebral edema. No calvarial fracture deformity. The orbits and paranasal sinuses normal. IMPRESSION: Normal CT head. Dictated by: Dictated on workstation # [id number]
[2022-01-13 15:28] LABS: POTASSIUM 3.6 MMOL/L (3.6-5.0)
[2022-01-13 15:29] LABS: CALCIUM 9.5 MG/DL (8.5-10.1)
[2022-01-13] MEDS ORDERED: DIAZEPAM INJ 10 MG/2 ML (VALIUM) SYR IVP ONE (15:30)
[2022-01-13 15:34] LABS: CREATININE SERUM 0.82 MG/DL (0.60-1.30)
[2022-01-13] MEDS ORDERED: ONDA4TAB11 PO (17:28)
[2022-01-13] MEDS ORDERED: MECL-149 PO (17:28)
[2022-01-13 17:41] VITALS: BP 138/79
== END 2022-01-13 17:43 | disposition home or self-care (01) ==
LOC: EDUNIT# 14:05 → ER 14:06
DX: E11.65 Type 2 diabetes mellitus with hyperglycemia (principal)
CPT/HCPCS: 36415; 70450; 80048; 85025